=== PATIENT | female | born 1990 | race Hispanic/Latino ===

== ENCOUNTER 2019-07-13 14:35 | Outpatient (CLI) | payer OTHER ==
--- NOTE | 2019-07-13 14:54 | RAD ---
XR Hand Rt 3 View STANDARD HISTORY: Injury. Right hand pain FINDINGS: No fracture or dislocation is identified.
--- NOTE | 2019-07-13 14:55 | RAD ---
XR Forearm Rt 2 View STANDARD HISTORY: Injury, right forearm pain FINDINGS: The right radius and ulna appear intact.
--- NOTE | 2019-07-13 14:56 | RAD ---
RIGHT WRIST 3 VIEWS: HISTORY: Right wrist pain, injury FINDINGS: No acute fracture or dislocation is identified. If symptoms do not improve, a follow-up exam should be obtained in 7-10 days.
== END 2019-07-13 14:36 | disposition home or self-care (01) ==
LOC: NAV RAD 14:35
DX: S59.911A Unspecified injury of right forearm, initial encounter (principal)